=== PATIENT | male | born 1965 | race Two or more races ===

== ENCOUNTER 2023-05-31 18:06 | Inpatient (IN) | payer OTHER ==
[~2023-05-31] VITALS: Ht 172.7 cm; Wt 102.9 kg
[2023-05-31] MEDS ORDERED: LOSA50TA39 PO (18:50)
[2023-05-31] MEDS ORDERED: HYDROMORPHONE 1 MG/1 ML DISP.SYRIN IV ONE (20:30)
[2023-05-31] MEDS ORDERED: IV NORMAL SALINE 1000 ML BAG IV ONE (20:30)
[2023-05-31] MEDS ORDERED: ONDANSETRON 4 MG/2 ML VIAL IV ONE (20:30)
[2023-05-31 20:53] LABS: HEMATOCRIT 48.1 % (36.7-47.1); MEAN CORPUSCULAR HEMOGLOBIN 28.2 uug (23.8-33.4); MEAN CORPUSCULAR VOLUME 84.7 fL (73.0-96.2); PLATELET COUNT (AUTO) 208 K/uL (152-348)
[2023-05-31] MEDS ORDERED: ONDANSETRON 4 MG/2 ML VIAL ONE (20:55)
[2023-05-31] MEDS ORDERED: HYDROMORPHONE 1 MG/1 ML DISP.SYRIN ONE (20:55)
--- NOTE | 2023-05-31 21:08 | NUR ---
LATE ENTRY: Patient BIB family from home with c/o fever, patient assisted into bed, placed into gown and on monitor, #20g was established in right AC, blood collected and sent to lab, medicated as per order, will continue to monitor.
[2023-05-31 21:19] LABS: CARBON DIOXIDE 24 mmol/L (21-32); CHLORIDE 100 mmol/L (98-107); CREATININE 1.5 mg/dL (0.6-1.3); UREA NITROGEN, BLOOD 19 mg/dL (7-18)
[2023-05-31 21:24] LABS: ALANINE AMINOTRANSFERASE 71 U/L (16-63); ALKALINE PHOSPHATASE 123 U/L (50-136); ASPARTATE AMINOTRANSFERASE 26 U/L (15-37); BILIRUBIN,DIRECT 0.7 mg/dL (0.0-0.2); BILIRUBIN,TOTAL 1.3 mg/dL (0.2-1.0); TOTAL PROTEIN, SERUM 8.8 g/dL (6.4-8.2)
[2023-05-31] MEDS ORDERED: IV NS 1000 ML 1,000 ML IV ONE (22:15)
--- NOTE | 2023-05-31 22:36 | NUR ---
Family at bedside, updated on plan of care, patient is resting and remains easy to arouse.
--- NOTE | 2023-05-31 23:49 | NUR ---
Patient cleaned of moderate amount of liquid stool, repositioned for comfort. No voiced c/o pain or discomfort at this time.
--- NOTE | 2023-06-01 00:11 | NUR ---
Rainer whelan in ED - 06/01/23 at 0012 by CHANDRIKA COVID swab sent to lab, patient aware of need for urine, unadle to provide at this time.
--- NOTE | 2023-06-01 00:12 | NUR ---
COVID swab sent to lab, patient aware of need for urine, unable to provide at this time.
--- NOTE | 2023-06-01 00:56 | NUR ---
Patient rest with family at bedside, no voiced c/o at this time.
--- NOTE | 2023-06-01 01:25 | NUR ---
Off unit to CT via rney.
--- NOTE | 2023-06-01 02:03 | NUR ---
Patient has returned to unit, placed back on monitor, IVF infusing at TKO rate, will continue to monitor.
[2023-06-01] MEDS ORDERED: levoFLOXacin 500 MG/D5W 100ML PIGGYBACK IV ONE (03:45)
[2023-06-01] MEDS ORDERED: IV NS 1000 ML 1,000 ML IV ONE (03:45)
--- NOTE | 2023-06-01 03:46 | NUR ---
Patient continues to sleep, family back at bedside, awaiting ER provider re-eval.
[2023-06-01] MEDS ORDERED: levoFLOXacin 500 MG/D5W 100 ML ONE (04:04)
--- NOTE | 2023-06-01 04:18 | NUR ---
Medicated as per order, IVF are w/o at this time.
--- NOTE | 2023-06-01 04:22 | NUR ---
Patient aware may be transfered, awaiting return call from supportive employment case manager.
--- NOTE | 2023-06-01 05:55 | NUR ---
Called [facility] to page Dr. Lindsay.
[2023-06-01] MEDS ORDERED: HYDROMORPHONE 1 MG/1 ML DISP.SYRIN IV ONE (06:00)
--- NOTE | 2023-06-01 06:09 | NUR ---
Patient informed that he will be admitted to the hospital, going to room 317. Report was given to Miriam, patient remains stable for transport to the unit, aware will go up next shift.
[2023-06-01] MEDS ORDERED: HYDROMORPHONE 2 MG/1 ML DISP.SYRIN ONE (06:13)
--- NOTE | 2023-06-01 06:31 | NUR ---
Cleaned of loose diarrhea stool at this time and repositioned for comfort.
[2023-06-01] MEDS ORDERED: MORPHINE SULFATE 2 MG/1 ML DISP.SYRIN IV PRN (06:45)
[2023-06-01] MEDS ORDERED: ACETAMINOPHEN 325 MG TABLET PO PRN (06:45)
[2023-06-01] MEDS ORDERED: IV D5 1/2 NS 1000 ML 1,000 ML IV PRN (06:45)
[2023-06-01] MEDS ORDERED: MAGNESIUM HYDROXIDE 30 ML LIQUID UDC PO PRN (06:45)
[2023-06-01] MEDS ORDERED: ONDANSETRON 4 MG/2 ML VIAL IV PRN (06:45)
[2023-06-01] MEDS ORDERED: REMEDY ESSENTIAL ZINC PASTE 113 GM TP PRN (06:45)
[2023-06-01] MEDS ORDERED: METRONIDAZOLE 500 MG/NS 100ML 100 ML IV ONE (06:50)
[2023-06-01] MEDS: METRONIDAZOLE 500 MG/NS 100ML 500 MG in PREMIXED 1 EACH IV SCH ×3 (06:54→21:08)
--- NOTE | 2023-06-01 07:00 | NUR ---
LISY PHILLIPS A/A/O XS4, BUT SLEEPY
[2023-06-01] MEDS: PANTOPRAZOLE SODIUM 40 MG VIAL IV SCH (09:25)
--- NOTE | 2023-06-01 11:02 | NUR ---
Pt arrived at 0705 from ER via gurney. Pt sleepy but arousable to name and touch. Received report from 3rd floor RN. 075 messaged Karthik Balderrama, TECHNICAL SERVICES REP to put in admit orders. Saline lock in Right AC, no IVs attached, no IVs running, no IV pole at bedside. Noticed Flagyl at bedside, unattached and not running, and notified induction brazer. Attached new IV fluids as ordered and changed IV tubing. Hung full bag of Flagyl at 1100 that was documented from ER at 0654. induction brazer aware. Still awaiting TECHNICAL SERVICES REP admit orders. Received medication from pt's at bedside for HEPATITIS C. Will add to home medications.
[2023-06-01] MEDS ORDERED: LEDI1TAB PO (11:20)
[2023-06-01 12:00] VITALS: BP 119/69; TEMP 98.6; O2SAT 94
[2023-06-01 15:53] VITALS: BP 122/63; TEMP 98.8; O2SAT 94
[2023-06-01 20:00] VITALS: BP 119/72; TEMP 99.1; O2SAT 99
[2023-06-01] MEDS: IV D5 1/2 NS 1000 ML 1,000 ML IV PRN (21:00)
--- NOTE | 2023-06-02 05:39 | NUR ---
Pt received awake in bed assisted with snack and urinal within reach, Pt unable to practice respiratory etiquette coughing on the face of staff during physical assessment done. Pt non cooperative with universal precautions and infection prevention. no initiative for ADL'S requesting help for dialing the phone explain pt to try to keep his joints functional. Continue monitoring safety and activities in bed. Pt received Fragyl and Levaquin IVPB, Pt afebrile during the PM shift, Endorse care to incoming nurse
[2023-06-02 05:53] VITALS: BP 118/70; TEMP 98.8; O2SAT 94
[2023-06-02] MEDS: METRONIDAZOLE 500 MG/NS 100ML 500 MG in PREMIXED 1 EACH IV SCH ×2 (06:00→13:57)
[2023-06-02] MEDS ORDERED: levoFLOXacin 500 MG/D5W 500 MG in PREMIXED 1 EACH IV SCH (06:00)
[2023-06-02 06:24] LABS: HEMATOCRIT 40.8 % (36.7-47.1); MEAN CORPUSCULAR HEMOGLOBIN 28.7 uug (23.8-33.4); MEAN CORPUSCULAR VOLUME 84.3 fL (73.0-96.2); PLATELET COUNT (AUTO) 160 K/uL (152-348)
[2023-06-02 06:25] LABS: *BILIRUBIN,URIN NEGATIVE (NEGATIVE); *CLARITY,URINE CLEAR (CLEAR); *COLOR,URINE YELLOW (YELLOW); *KETONES,URINE NEGATIVE (NEGATIVE); *UROBILINOGEN,URINE 0.2 E.U./dl (NORMAL); LEUKOCYTE ESTERASE ,URINE NEGATIVE (NEGATIVE); NITRITE, URINE NEGATIVE (NEGATIVE); PH,URINE 5.5 (5.0-8.0); UGLUCOSE NEGATIVE (NEGATIVE)
[2023-06-02 06:46] LABS: CREATININE 1.2 mg/dL (0.6-1.3); MAGNESIUM 2.2 mg/dL (1.8-2.4); PHOSPHOROUS 1.4 mg/dL (2.5-4.9); POTASSIUM 3.8 mmol/L (3.5-5.1)
[2023-06-02 07:29] LABS: *BLOOD, URINE TRACE (NEGATIVE)
[2023-06-02 07:44] LABS: BACTERIA,URINE FEW /HPF (NONE SEEN); RBC,URINE 0-3 /HPF (0-3); SQUAMOUS EPITHELIAL CELL,UR FEW /HPF (NONE SEEN); WBC,URINE NONE SEEN /HPF (0-3)
[2023-06-02] MEDS: PANTOPRAZOLE SODIUM 40 MG VIAL IV SCH (08:43)
--- NOTE | 2023-06-02 09:30 | NUR ---
Rcvd pt in bed. AA0 X4. No SOB or any respiratory distress. V/S WNL. IV on Left arm patent and intact running D5 1/2 NS. Routine meds given and tolerated well. Finished 90% breakfast and with 2 soft medium bowel movement.
[2023-06-02] MEDS: IV D5 1/2 NS 1000 ML 1,000 ML IV PRN (10:46)
[2023-06-02 11:06] VITALS: BP 120/73; TEMP 97.3; O2SAT 94
[2023-06-02] MEDS ORDERED: LOPE-195 PO (14:10)
[2023-06-02 14:36] LABS: BAND % (MANUAL) 1 % (0-10); EOSINOPHILS % (MANUAL) 3 % (0-8); LYMPHOCYTES % (MANUAL) 19 % (20-40); MONOCYTES % (MANUAL) 17 % (2-10); NEUTROPHILS % (MANUAL) 57 % (42-75)
[2023-06-02 14:37] LABS: REACTIVE LYMPHOCYTES 3 % (0-0)
[2023-06-02] MEDS ORDERED: NEUTRA PHOS PACKET PO ONE (17:00)
--- NOTE | 2023-06-02 17:06 | NUR ---
Discharged pt. home. Family picked the pt. via private car. Pt. ambulatory. Discharge protocol observed. Pt. education/ teaching about colitis provided. Belongings and valuables all accounted for. Pt. stable upon discharge. Family was grateful for the service.
[2023-06-03] MEDS ORDERED: LOSARTAN POTASSIUM 50 MG TABLET PO SCH (09:00)
[2023-06-04 06:06] LABS: HEPATITIS A AB, IgM Positive (Negative); HEPATITIS A AB, TOTAL Positive (Negative)
[2023-06-05 04:06] LABS: *TRIC.VAG. NAA Negative (Negative)
[2023-06-05 11:07] LABS: *GC NAA Negative (Negative)
== END 2023-06-02 16:30 | disposition home or self-care (01) | DRG 249 ==
LOC: ER 18:18 → MEDSURG3 06-01 06:38
PROVIDERS: ADMIT Student in an Organized Health Care Education/Training Program; ATTEND Nurse Practitioner Acute Care
DX: K52.1 Toxic gastroenteritis and colitis (principal); N17.0 Acute kidney failure with tubular necrosis; T37.5X5A Adverse effect of antiviral drugs, initial encounter; Y92.89 Other specified places as the place of occurrence of the external cause; E86.0 Dehydration; B19.20 Unspecified viral hepatitis C without hepatic coma; E87.1 Hypo-osmolality and hyponatremia; I10 Essential (primary) hypertension; Z20.5 Contact with and (suspected) exposure to viral hepatitis; R50.9 Fever, unspecified; Z20.822 Contact with and (suspected) exposure to COVID-19; R00.0 Tachycardia, unspecified; I45.10 Unspecified right bundle-branch block
CPT/HCPCS: 36415; 70030-TC; 71045; 83605; 83735; 84100; 84484; 85025; 85730; 86708; 86709; 87040; 87491; 93005; C9113; G0378; J1170; J1956; J2405; J3490; J7040